=== PATIENT | female | born 1950 | race African-American/Black ===

== ENCOUNTER 2018-07-14 19:42 | Emergency (ER) | payer OTHER ==
[~2018-07-14] VITALS: Ht 172.7 cm; Wt 87.1 kg
--- NOTE | 2018-07-14 22:36 | RAD ---
PQRS Compliance statement: One or more of the following individualized dose reduction techniques were utilized for this examination: 1. Automated exposure control. 2. Adjustment of the mA and/or kV according to patient size. 3. Use of iterative reconstruction technique. Indication:s/p fall x 8 days ago; headache and neck pain TECHNIQUE: CT head without IV contrast COMPARISON:None FINDINGS: No pathologic extra-axial or intra-axial fluid collection. The ventricles and basal cisterns are within normal limits. No acute intracranial bleed. No focal loss of greco-white differentiation. Orbits within normal limits. No suspicious calvarial lesions or acute fractures. Visualized paranasal sinuses and mastoid air cells are clear. IMPRESSION: No acute intracranial process. Indication:s/p fall x 8 days ago; headache and neck pain TECHNIQUE: CT of the cervical spine without IV contrast with multiplanar reformats. COMPARISON:None FINDINGS: The cervical spine is in normal anatomic alignment. Atlantoaxial joint or is preserved with mild degenerative changes. No compression deformities. Facet joints are in normal anatomic alignment. Mild facet arthropathy. No acute fractures. The noncontrast sections through the neck soft tissues are within normal limits. 8mm groundglass nodule is seen in the right lung apex. IMPRESSION: 1. No acute fractures. 2. Right lung apex nodule. Follow-up CT chest in 3 months recommended. Electronically signed by: Beck Connor DO (07/14/2018 10:33 PM) [facility]
--- NOTE | 2018-07-14 22:46 | PHYS DOC ---
Past Medical History Past Medical History: High Cholesterol, Hypertension, Other Additional Past Medical Histor: CHRONIC BACK PAIN, GLACOMA? Past Surgical History: Tubal ligation Alcohol Use: None Drug Use: None Adult General Chief Complaint Chief Complaint: MECHANICAL FALL HPI HPI Patient is a 67 year old Female who presents with falling out of her bed 8 days ago and hitting head on carpeted floor. Patient denies LOC. Patient states has had continuous frontal headache and dizziness ever sense. Patient denies any chest pain, neck pain, soa. visual changes, or numbness and weakness. Review of Systems Review of Systems Constitutional: Denies fever or chills [] Eyes: Denies change in visual acuity, redness, or eye pain [] HENT: Denies nasal congestion or sore throat [] Respiratory: Denies cough or shortness of breath [] Cardiovascular: No additional information not addressed in HPI [] GI: Denies abdominal pain, nausea, vomiting, bloody stools or diarrhea [] : Denies dysuria or hematuria [] Musculoskeletal: Denies back pain or joint pain [] Integument: Denies rash or skin lesions [] Neurologic: Denies headache, focal weakness or sensory changes [] Endocrine: Denies polyuria or polydipsia [] All other systems were reviewed and found to be within normal limits, except as documented in this note. Allergies Allergies Allergies Coded Allergies Type Severity Reaction Last Updated Verified sulfamethoxazole Allergy Unknown 07/14/18 Yes trimethoprim Allergy Unknown 07/14/18 Yes Physical Exam Physical Exam Constitutional: Well developed, well nourished, no acute distress, non-toxic appearance. [] HENT: Normocephalic, atraumatic, bilateral external ears normal, oropharynx moist, no oral exudates, nose normal. [] Eyes: PERRLA, EOMI, conjunctiva normal, no discharge. [] Neck: Normal range of motion, no tenderness, supple, no stridor. [] Cardiovascular:Heart rate regular rhythm, no murmur [] Lungs & Thorax: Bilateral breath sounds clear to auscultation [] Abdomen: Bowel sounds normal, soft, no tenderness, no masses, no pulsatile masses. [] Skin: Warm, dry, no erythema, no rash. [] Back: No tenderness, no CVA tenderness. [] Extremities: No tenderness, no cyanosis, no clubbing, ROM intact, no edema. [] Neurologic: Alert and oriented X 3, normal motor function, normal sensory function, no focal deficits noted. [] Psychologic: Affect normal, judgement normal, mood normal. [] Current Patient Data Vital Signs Vital Signs Date Time Temp Pulse Resp B/P (MAP) Pulse Ox O2 Delivery O2 Flow Rate FiO2 07/14/18 21:30 64 99 07/14/18 20:40 98.1 20 162/84 (110) Room Air 98.1 Lab Values Laboratory Tests Test 07/14/18 20:08 POC Urine HCG, Qualitative Hcg negative (Negative) EKG EKG [] Radiology/Procedures Radiology/Procedures CT HEAD CERVICAL SPINE[] Impressions: [facility] [address] [place] [address] IMAGING REPORT Signed PATIENT: AMANDA WU ACCOUNT: [id number] : 1950 LOCATION: ER AGE: 67 SEX: F EXAM STATUS: REG ER ORD. PHYSICIAN: MEGGAN SOMMERS APRN REASON: s/p fall 8 days ago; headache and neck pain PROCEDURE: CT HEAD AND CERVICAL SPINE WO PQRS Compliance statement: One or more of the following individualized dose reduction techniques were utilized for this examination: 1. Automated exposure control. 2. Adjustment of the mA and/or kV according to patient size. 3. Use of iterative reconstruction technique. Indication:s/p fall x 8 days ago; headache and neck pain TECHNIQUE: CT head without IV contrast COMPARISON:None FINDINGS: No pathologic extra-axial or intra-axial fluid collection. The ventricles and basal cisterns are within normal limits. No acute intracranial bleed. No focal loss of greco-white differentiation. Orbits within normal limits. No suspicious calvarial lesions or acute fractures. Visualized paranasal sinuses and mastoid air cells are clear. IMPRESSION: No acute intracranial process. Indication:s/p fall x 8 days ago; headache and neck pain TECHNIQUE: CT of the cervical spine without IV contrast with multiplanar reformats. COMPARISON:None FINDINGS: The cervical spine is in normal anatomic alignment. Atlantoaxial joint or is preserved with mild degenerative changes. No compression deformities. Facet joints are in normal anatomic alignment. Mild facet arthropathy. No acute fractures. The noncontrast sections through the neck soft tissues are within normal limits. 8mm groundglass nodule is seen in the right lung apex. IMPRESSION: 1. No acute fractures. 2. Right lung apex nodule. Follow-up CT chest in 3 months recommended. Electronically signed by: Beck Connor DO (07/14/2018 10:33 PM) [facility] DICTATED and SIGNED BY: BECK CONNOR DO DATE: 07/14/182225 Course & Med Decision Making Course & Med Decision Making Patient is a 67 year old Female who presents with falling out of her bed 8 days ago and hitting head on carpeted floor. Patient denies LOC. Patient states has had continuous frontal headache and dizziness ever sense. Patient denies any chest pain, neck pain, soa. visual changes, or numbness and weakness. Upon examination the patient is alert and oriented. Patient is neurologically intact. There is no bony or tissue swelling or tenderness to c spine or head. There are no lacerations or abrasions. Patient drove herself and has a steady gait. [] Dragon Disclaimer Dragon Disclaimer This electronic medical record was generated, in whole or in part, using a voice recognition dictation system. Departure Departure Impression: Primary Impression: Head injury Disposition: 01 HOME, SELF-CARE Condition: STABLE Referrals: BRAD AGUILAR MD (PCP) Patient Instructions: Head Injury, Adult Additional Instructions: Follow up with primary care. Take Ibuprofen for pain. Problem Qualifiers Primary Impression: Head injury Encounter type: initial encounter Qualified Codes: S09.90XA - Unspecified injury of head, initial encounter MEGGAN SOMMERS RISK DEVELOPER Jul 14, 2018 22:46
[2018-07-14 23:30] VITALS: BP 166/94
== END 2018-07-14 23:30 | disposition home or self-care (01) ==
LOC: ER 19:42
DX: S09.90XA Unspecified injury of head, initial encounter (principal); I10 Essential (primary) hypertension; E78.00 Pure hypercholesterolemia, unspecified; G89.29 Other chronic pain; Z88.1 Allergy status to other antibiotic agents; Z88.2 Allergy status to sulfonamides; W22.8XXA Striking against or struck by other objects, initial encounter; Y93.89 Activity, other specified; Y92.89 Other specified places as the place of occurrence of the external cause; Y99.8 Other external cause status
CPT/HCPCS: 70450; 72125; 81025; 99284-25